=== PATIENT | female | born 1995 | race Caucasian/White ===

== ENCOUNTER 2020-12-21 09:30 | Day surgery (SDC) | payer OTHER, SELFPAY ==
[2020-12-21] VITALS (7 sets, daily range): BP systolic 103–108; BP diastolic 68–75; PULSE 75–85; RESP 16–18; TEMP 36.6–36.7; O2SAT 99–100; BMI 21.7
--- NOTE | ~2020-12-21 | FL_ITS ---
EXAMINATION: XR LUMBAR PUNCTURE UNDER FLUOROSCOPIC GUIDANCE CLINICAL INFORMATION: 25-year-old with persistent right lower extremity numbness and some pain. Patient notes negative outside diagnostic imaging including lumbar spine MR and imaging has been cervical spine. COMPARISON: None. PROCEDURE: Proper informed consent is obtained from the patient after discussion of the procedure, potential risks and complications, and alternatives including declining the procedure today. Patient was given an opportunity for questions. The patient appeared to understand. The patient consented to the procedure and signed the consent form. Lumbar puncture is performed under fluoroscopic guidance using aseptic technique including use of hat, mask, and sterile gown and gloves. Exam performed at interlaminar level of L3-L4. Local anesthesia administered using 5 mL lidocaine 1%. A 22g spinal needle was positioned and prompt recovery of clear cerebral spinal fluid retrieved. A total of 7 mL cerebrospinal fluid was drained, divided among 4 tubes. Laboratories ordered and post procedure note and discharge instructions entered into system. The patient tolerated the procedure well and had no immediate complication. Total fluoroscopy time 0.6 minutes. DAP: 1.161 Gy-cm2 Images: 1 FL/FL guided lumbar puncture LP IMPRESSION: 1. Status post fluoroscopic guided lumbar puncture. 2. Laboratories pending.
[2020-12-21 10:12] LABS: MANUAL DIFF FLAG NO
[2020-12-21 10:13] LABS: Basophils Percent Auto 0.7 % (0-2); Eosinophils Absolute Auto 0.2 X10*3/uL (0.0-0.4); Eosinophils Percent Auto 2.6 % (0-4); Hematocrit 36.7 % (37-47); Hemoglobin 12.4 g/dl (12.0-16.0); Imm Gran Abs Auto 0.02 X10*3/uL (0.00-0.03); Imm Gran Pct Auto 0.3 % (0.0-0.4); Lymphocytes Absolute Auto 2.2 X10*3/uL (1.2-4.9); Lymphocytes Percent Auto 37.5 % (20-40); Mean Corpuscular HGB Conc 33.8 g/dl (31.0-35.0); Mean Corpuscular Volume 94.8 fL (80-98); Mean Platelet Volume 10.4 fL (9.4-12.3); Monocytes Absolute Auto 0.2 X10*3/uL (0.1-1.2); Monocytes Percent Auto 3.6 % (2-11); Neutrophils Absolute Auto 3.2 X10*3/uL (2.0-8.3); Neutrophils Percent Auto 55.3 % (45-73); Platelet Count 245 X10*3/uL (160-400); Red Blood Count 3.87 X10*6/uL (4.20-5.50); Red Cell Distribution Width 11.7 % (11.0-16.0); White Blood Count 5.8 X10*3/uL (4.8-10.8)
[2020-12-21 10:20] LABS: Prothrombin Time 10.8 SEC (9.9-13.0)
[2020-12-21 10:23] LABS: Partial Thromboplastin Time 31.7 SEC (24.1-38.0)
[2020-12-21 10:40] LABS: UPreg QC Valid YES; Urine Pregnancy NEGATIVE (NEGATIVE)
--- NOTE | 2020-12-21 12:11 | HO.RADPN ---
RADIOLOGY Narrative Narrative: Lumbar Puncture: -Labs reviewed. -PCP H&P reviewed -Proper informed consent obtained from patient including risks, complications, alternatives. Gave opportunity for questions. Patient agreed to LP procedure and singed form. -Fluoro guidance, aseptic technique. -L3-4 interlaminar approach. -5 mL lidocaine local anesthesia. -22g spinal needle -Clear CSF - approximately 7mL divided into 4 tubes. -Labs entered including cell count, diff, Gram stain & Culture, glucose, protein, MBP, electrophoresis. -Patient tolerated procedure well and had no complication. -Home instructions reviewed with patient. -Discharge orders sent. -Will dictate procedure report in radiology [employer] to follow. Trevor Chang MD
[2020-12-21 12:51] LABS: CSF Tube # 1
[2020-12-21 12:52] LABS: CSF Appearance Bloody
[2020-12-21 13:30] LABS: Glucose CSF 48 mg/dL; Total Protein CSF 35.1 mg/dL (15-45)
[2020-12-21 14:30] LABS: Appearance CSF CLEAR; CSF Tube # 4; Color CSF COLORLESS
[2020-12-21 14:31] LABS: Lymphocytes CSF 88 %; Neutrophils CSF 12 %; Red Blood Cell CSF 27 MM*3; White Blood Cell CSF 3 MM*3
[2020-12-29 16:26] LABS: Myelin Basic Protein <2.0 mcg/L (2.0-4.0)
[2021-01-05 08:23] LABS: Prealbumin, CSF 3.6; Total Protein, CSF 33
[2021-01-05 08:24] LABS: Albumin, CSF 60.4; Alpha-2-Globulin,CSF 7.5
[2021-01-05 08:25] LABS: Gamma Globulin 4.8
== END 2020-12-21 14:05 | disposition home or self-care (01) ==
PROVIDERS: Radiology Diagnostic Radiology; PCP Internal Medicine; Visit Provider Radiology Diagnostic Radiology
PROC: 009U3ZZ Drainage of Spinal Canal, Percutaneous Approach (ICD-10-PCS; CPT 62270; principal; 2020-12-21 11:00)
DX: G37.9 Demyelinating disease of central nervous system, unspecified (principal); R20.0 Anesthesia of skin; M54.2 Cervicalgia; M54.16 Radiculopathy, lumbar region
CPT/HCPCS: 36415; 62328; 81025; 82945; 83873; 84157; 84166; 85025; 85610; 85730; 87015; 87070; 87205; 89051

== ENCOUNTER 2020-12-22 12:44 | Inpatient (IN) | payer OTHER, SELFPAY ==
--- NOTE | ~2020-12-22 | CT_ITS ---
EXAMINATION: CT HEAD WITHOUT CONTRAST CLINICAL INFORMATION: Headache COMPARISON: None TECHNIQUE: Contiguous axial imaging was performed from the skull base to vertex without intravenous administration of contrast. This CT examination was performed using dose optimization techniques as appropriate, variously including the following: *Automated exposure control *Adjustment of mA and/or kV according to patient size (this includes techniques or standardized protocols for targeted exams where dose is matched to indication/reason for exam; i.e. extremities or head) *Use of iterative reconstruction technique DLP: 759 mGy-cm FINDINGS: There is no evidence of acute intracranial hemorrhage or territorial infarction. No abnormal mass effect or midline shift is seen. Heller to white matter differentiation is well preserved. No extra-axial fluid collections are identified. The ventricles are normal in size. There is no abnormal attenuation within the brain parenchyma. The osseous structures and soft tissues are normal. The visualized paranasal sinuses are well-aerated. Partial opacification of the few of the left mastoid air cells. Right mastoid air cells are well-aerated. Bilateral middle ear cavities are well-aerated. CT/CT head/brain wo con IMPRESSION: No acute intracranial pathology.
--- NOTE | ~2020-12-22 | FL_ITS ---
EXAMINATION: XR FLUOROSCOPY WITH IMAGES CLINICAL INFORMATION: Pain post lumbar puncture COMPARISON: Fluoroscopic guided lumbar puncture 12/21/2020 TECHNIQUE: Fluoroscopy performed by Dr. Kumar Gtz. Fluoroscopy time: 0.3 minutes DAP: 0.675 Gycm2 Images: 3 FINDINGS: Spinal needle is seen positioned at the L3-L4 interlaminar space. The lateral views show contrast in the epidural space. FL/FL guidance in OR IMPRESSION: Fluoroscopy for pain management procedure.
[2020-12-22 12:46] VITALS: BP 116/85; PULSE 130; RESP 16; TEMP 36.6; O2SAT 98; BMI 21.7
[2020-12-22 13:10] VITALS: BP 124/80; PULSE 100; O2SAT 96
--- NOTE | 2020-12-22 13:18 | ED_ITS ---
HPI - General Adult General Chief complaint: General Medical <QUEENIE Palomino - Last Filed: 12/22/20 17:39> Stated complaint: vomiting, had spinal tap t-1 <QUEENIE Palomino - Last Filed: 12/22/20 17:39> Time Seen by Provider: 12/22/20 13:05 <QUEENIE Palomino - Last Filed: 12/22/20 17:39> Source: patient <QUEENIE Palomino - Last Filed: 12/22/20 17:39> Mode of arrival: ambulatory <QUEENIE Palomino - Last Filed: 12/22/20 17:39> Limitations: no limitations <QUEENIE Palomino Last Filed: 12/22/20 17:39> History of Present Illness HPI narrative: 25 y/o female with history of anxiety and mood disorder presenting with severe neck and back pain after LP done here at 11am yesterday. She is currently being worked up by Dr. Truong for a possible delyelinating disease; she has had entire RLE numbness for about 6 weeks. She has had CT scans and MRIs. She reports about 2 hours after the LP done yesterday she started having severe neck pain, middle back pain and headaches, worse whenever she stood. She states the neck and back pain are 10/10. No improvement with Tramadol, Flexeril and Aleve at home. She had projectile vomiting on the way into the ER. Pain is worse with any movement. <QUEENIE Palomino - Last Filed: 12/22/20 17:39> MD complaint: head, neck and back pain <QUEENIE Palomino - Last Filed: 12/22/20 17:39> Onset (ago): day(s) <QUEENIE Palomino - Last Filed: 12/22/20 17:39> Location: head, neck and back <QUEENIE Palomino Last Filed: 12/22/20 17:39> Radiation: back <QUEENIE Palomino Last Filed: 12/22/20 17:39> Severity: severe <QUEENIE Palomino Last Filed: 12/22/20 17:39> Severity scale (1-10): >10 <QUEENIE Palomino Last Filed: 12/22/20 17:39> Quality: stabbing, sharp and constant <QUEENIE Palomino Last Filed: 12/22/20 17:39> Pain Consistency: constant <QUEENIE Palomino Last Filed: 12/22/20 17:39> Relieving factors: immobilization and rest <QUEENIE Palomino Last Filed: 12/22/20 17:39> Exacerbating factors: movement <QUEENIE Palomino Last Filed: 12/22/20 17:39> Associated symptoms: headaches and nausea/vomiting <QUEENIE Palomino Last Filed: 12/22/20 17:39> Treatments prior to arrival: other (tramadol) <QUEENIE Palomino Last Filed: 12/22/20 17:39> Related Data Home medications: Home Medications Medication Instructions Recorded Confirmed clonazepam 0.5 mg tablet 0.25 - 0.5 mg PO BEDTIME 12/22/20 12/22/20 cyclobenzaprine 10 mg tablet 1 tab PO BEDTIME 12/22/20 12/22/20 lamotrigine 150 mg tablet 1 tab PO BEDTIME 12/22/20 12/22/20 melatonin 3 mg tablet 3 mg PO BEDTIME 12/22/20 12/22/20 norgestimate 0.25 mg-ethinyl 1 tab PO BEDTIME 12/22/20 12/22/20 estradiol 35 mcg tablet tramadol 50 mg tablet 1 tab PO DAILY PRN 12/22/20 12/22/20 trazodone 100 mg tablet 1 tab PO BEDTIME 12/22/20 12/22/20 <QUEENIE Palomino Last Filed: 12/22/20 17:39> Allergies/adverse reactions: Allergies Allergy/AdvReac Type Severity Reaction Status Date / Time From Benadryl Allergy Unknown N/A Uncoded 01/08/20 17:58 <QUEENIE Palomino Last Filed: 12/22/20 17:39> Review of Systems Constitutional: Constitutional: Denies chills, Denies fever(s) and Reports headache(s) <QUEENIE Palomino Last Filed: 12/22/20 17:39> Eyes: Eyes: Reports no additional eye complaints <QUEENIE Palomino Last Filed: 12/22/20 17:39> ENT: Denies dizziness, Denies otalgia, Denies facial pain, Reports headache(s), Denies neck mass, Reports neck pain, Denies throat swelling and Denies tongue swelling <QUEENIE Palmoino Last Filed: 12/22/20 17:39> Cardiovascular: Cardiovascular: Reports chest pain and Denies dyspnea <QUEENIE Judge Last Filed: 12/22/20 17:39> Respiratory: Respiratory: Denies cough and Denies dyspnea <QUEENIE Ceron Last Filed: 12/22/20 17:39> Gastrointestinal: Gastrointestinal: Denies abdominal pain, Denies coffee ground emesis, Denies diarrhea, Reports nausea and Reports vomiting <QUEENIE Palomino Last Filed: 12/22/20 17:39> Musculoskeletal: Musculoskeletal: Reports back pain, Denies arthralgias, Denies limited range of motion, Reports neck pain, Reports numbness and Denies tingling <QUEENIE Palomino Last Filed: 12/22/20 17:39> Integumentary/Breasts: Skin/Breast: Denies rash <QUEENIE Palomino Last Filed: 12/22/20 17:39> Neurologic: Denies Abnormal speech present, Denies confusion, Denies d izziness, Reports headache(s), Denies focal weakness, Reports numbness, Denies tingling and Denies paresthesias <QUEENIE Palomino Last Filed: 12/22/20 17:39> Psychiatric: Psychiatric: Reports anxiety and Denies confusion <QUEENIE Palomino Last Filed: 12/22/20 17:39> Hematologic/Lymphatic: Hematologic/Lymphatic: Denies easy bleeding and Denies easy bruising <QUEENIE Palomino Last Filed: 12/22/20 17:39> Allergic/Immunologic: Allergic/Immunologic: Denies throat swelling and Denies tongue swelling <QUEENIE Palomino Last Filed: 12/22/20 17:39> PMFSH Past Medical History Attestation statement: The following information was validated with the patient. <QUEENIE Palomino - Last Filed: 12/22/20 17:39> Medical History: Medical History Toxic shock syndrome Vaginal tumor <QUEENIE Palomino - Last Filed: 12/22/20 17:39> Surgical History: Surgical History (Updated 12/22/20 @ 12:48 by Louise Chnag RN) History of appendectomy <QUEENIE Palomino - Last Filed: 12/22/20 17:39> Social History Social History: Social History Alcohol intake: current Alcohol intake frequency: holidays/special occasions only Patient Tobacco Use Status: Never used Tobacco Use of substances other than those prescribed or required for medical reasons: No Advance Directives: No Advance Directives Information Provided: No <QUEENIE Palomino - Last Filed: 12/22/20 17:39> Physical Exam 2 Vital Signs: Vital Signs: Last Vital Signs Temp 98.1 F 12/22/20 16:11 Pulse 97 12/22/20 16:11 Resp 20 12/22/20 21:50 BP 103/62 12/22/20 16:11 Pulse Ox 100 12/22/20 21:50 Body Mass Index 21.7 <QUEENIE Palomino - Last Filed: 12/22/20 17:39> Vital Signs: Last Vital Signs Temp 98.1 F 12/22/20 16:11 Pulse 97 12/22/20 16:11 Resp 20 12/22/20 21:50 BP 103/62 12/22/20 16:11 Pulse Ox 100 12/22/20 21:50 Body Mass Index 21.7 <Teresa Ivey NP - Last Filed: 12/22/20 23:00> Appearance: Alert. Oriented X3. Laying flat on the stretcher, appears uncomfortable. Eyes: Pupils equal, round and reactive to light. ENT: Pharynx normal. Neck: Normal inspection. Neck supple. Soft tissues of the posterior neck are tender with spasm. CVS: Normal heart rate and rhythm. Pulses normal. Respiratory: No respiratory distress. Breath sounds normal. Abdomen: Soft and nontender. +BS x4 Skin: Skin warm and dry. Normal skin color. Normal skin turgor. No rashes. Extremities: No lower extremity edema. Neuro: Oriented X 3. Speaking in complete sentences, no gross motor or sensory deficits. Unable to perform complete neuro assessment as patient needs to continue to lay flat. <QUEENIE Palomino Last Filed: 12/22/20 17:39> Const: General: No confusion <QUEENIE Palomino Last Filed: 12/22/20 17:39> Orientation/consciousness: No confusion <QUEENIE Palomino Last Filed: 12/22/20 17:39> Neuro: General: No confusion <QUEENIE Palomino Last Filed: 12/22/20 17:39> Speech: No Abnormal speech present <QUEENIE Palomino Last Filed: 12/22/20 17:39> Course Course Course Narrative: 25 y/o female presenting with severe neck, back and occipital head pain s/p LP done here yeater morning. Will give IVF, toradol and dilaudid and reassess. Labs ordered. Laying flat in the stretcher. Appears uncomfortable. <QUEENIE Palomino Last Filed: 12/22/20 17:39> Reevaluation(s) Reevaluation #1: Minimal relief with 0.5 mg IV dilaudid, will repeat dose and add 1g tylenol and more fluids. <QUEENIE Palomino Last Filed: 12/22/20 17:39> Reevaluation #2: Patient had some brief relief after 1 mg IV dilaudid but when she sat back up the pain significantly worsened. She is now describing upper back and lateral neck pain, seems to be more muscular in nature. will give trial of Valium. TT anesthesia for blood patch evaluation. <QUEENIE Palomino Last Filed: 12/22/20 17:39> Reevaluation #3: Physician observation started at 5:30pm. Patient placed in physician observation because patient is awaiting anesthesia evaluation for the possible need of a blood patch. Also giving the medications more time to work. At the time observation was started patient's vital signs were stable. Patient is alert and oriented. Neuro exam is non-focal. CV: RRR and lungs are clear. Will continue to monitor. <QUEENIE Palomino Last Filed: 12/22/20 17:39> Time: 21:00 <Teresa Ivey NP - Last Filed: 12/22/20 23:00> Additional Reevaluation(s): I received sign out from Sallie JEROME pending anesthesia involvement for blood patch. Patient is currently being followed by neurology for RLE paresthesias and had a LP yesterday under fluoroscopy. After the LP she developed VALDEZ, neck pain and back pain. Patient received multiple medications by the previous provider with continued symptoms and therefore an anesthesia consult was placed for possible blood patch. The patient was seen by Dr Putnam and after discussion with the patient it was decided to hold on the blood patch. He did administer a sphenopalatine ganglion block. I re-evaluated the patient at 0. She tells me she has mild VALDEZ but severe neck and back pain which has been persistent. She has some relief with the IV dilaudid. She tells me she cannot get up or sit up by herself without help. I spoke to my attending Dr Fan who saw the patient. Recommended giving 10mg IV decadron and discussing the case with the patient's neurologist (Hugo). Call out to credit control clerk neurologist to discuss. Patient may need admission for pain control. [phone] to Dr Arias who recommended IVcaffeine x 2 doses. Admit for pain control. Re-evaluate for need for blood patch in the AM. Call out to medicine to discuss for admission. [phone]-Spoke to Dr Stahl who accepted admission. <Teresa Ivey NP - Last Filed: 12/22/20 23:00> Medical Decision Making Lab Data Result diagrams: : 12/22/20 13:28 12/22/20 13:28 <QUEENIE Palomino - Last Filed: 12/22/20 17:39> Labs: Lab Results 12/22/20 12/22/20 Range/Units 13:28 13:28 WBC 10.1 (4.8-10.8) X10*3/uL RBC 3.98 L (4.20-5.50) X10*6/uL Hgb 12.8 (12.0-16.0) g/dl Hct 37.3 (37-47) % MCV 93.7 (80-98) fL MCH 32.2 (27.0-33.0) pg MCHC 34.3 (31.0-35.0) g/dl RDW 11.4 (11.0-16.0) % Plt Count 248 (160-400) X10*3/uL MPV 10.3 (9.4-12.3) fL Immature Gran % (Auto) 0.4 (0.0-0.4) % Neut % (Auto) 75.1 H (45-73) % Lymph % (Auto) 20.3 (20-40) % [place] % (Auto) 3.3 (2-11) % Eos % (Auto) 0.6 (0-4) % Baso % (Auto) 0.3 (0-2) % Lymph # (Auto) 2.0 (1.2-4.9) X10*3/uL [place] # (Auto) 0.3 (0.1-1.2) X10*3/uL Eos # (Auto) 0.1 (0.0-0.4) X10*3/uL Baso # (Auto) 0.0 (0.0-0.2) X10*3/uL Abs Immat Gran (auto) 0.04 H (0.00-0.03) X10*3/uL Absolute Neuts (auto) 7.6 (2.0-8.3) X10*3/uL Absolute Nucleated RBC 0.000 (0.0-0.012) X10*3/uL Nucleated RBC % (auto) 0.0 (0.0-0.2) /100WBC Sodium 137 (135-145) mmol/L Potassium 3.8 (3.3-5.1) mmol/L Chloride 103 (96-108) mmol/L Carbon Dioxide 26 (22-29) mmol/L Anion Gap 12 (12-20) BUN 13 (9-16) mg/dL Creatinine 0.80 (0.5-1.4) mg/dL Estim Creat Clear Calc 98.9 Estimated GFR > 60 Random Glucose 89 (60-115) mg/dL Calcium 10.0 (8.4-10.2) mg/dL <QUEENIE Palomino - Last Filed: 09/01/21 17:39> Lab Results 12/22/20 12/22/20 Range/Units 13:28 13:28 WBC 10.1 (4.8-10.8) X10*3/uL RBC 3.98 L (4.20-5.50) X10*6/uL Hgb 12.8 (12.0-16.0) g/dl Hct 37.3 (37-47) % MCV 93.7 (80-98) fL MCH 32.2 (27.0-33.0) pg MCHC 34.3 (31.0-35.0) g/dl RDW 11.4 (11.0-16.0) % Plt Count 248 (160-400) X10*3/uL MPV 10.3 (9.4-12.3) fL Immature Gran % (Auto) 0.4 (0.0-0.4) % Neut % (Auto) 75.1 H (45-73) % Lymph % (Auto) 20.3 (20-40) % [place] % (Auto) 3.3 (2-11) % Eos % (Auto) 0.6 (0-4) % Baso % (Auto) 0.3 (0-2) % Lymph # (Auto) 2.0 (1.2-4.9) X10*3/uL [place] # (Auto) 0.3 (0.1-1.2) X10*3/uL Eos # (Auto) 0.1 (0.0-0.4) X10*3/uL Baso # (Auto) 0.0 (0.0-0.2) X10*3/uL Abs Immat Gran (auto) 0.04 H (0.00-0.03) X10*3/uL Absolute Neuts (auto) 7.6 (2.0-8.3) X10*3/uL Absolute Nucleated RBC 0.000 (0.0-0.012) X10*3/uL Nucleated RBC % (auto) 0.0 (0.0-0.2) /100WBC Sodium 137 (135-145) mmol/L Potassium 3.8 (3.3-5.1) mmol/L Chloride 103 (96-108) mmol/L Carbon Dioxide 26 (22-29) mmol/L Anion Gap 12 (12-20) BUN 13 (9-16) mg/dL Creatinine 0.80 (0.5-1.4) mg/dL Estim Creat Clear Calc 98.9 Estimated GFR > 60 Random Glucose 89 (60-115) mg/dL Calcium 10.0 (8.4-10.2) mg/dL <Teresa Ivey NP - Last Filed: 12/22/20 23:00> Discharge Plan Discharge Clinical Impression: Headache following lumbar puncture <QUEENIE Palomino - Last Filed: 12/22/20 17:39> Patient Disposition: Admitted As Inpatient <QUEENIE Palomino - Last Filed: 12/22/20 17:39>
[2020-12-22 13:35] LABS: MANUAL DIFF FLAG NO
[2020-12-22 13:36] LABS: Basophils Percent Auto 0.3 % (0-2); Eosinophils Absolute Auto 0.1 X10*3/uL (0.0-0.4); Eosinophils Percent Auto 0.6 % (0-4); Hematocrit 37.3 % (37-47); Hemoglobin 12.8 g/dl (12.0-16.0); Imm Gran Abs Auto 0.04 X10*3/uL (0.00-0.03); Imm Gran Pct Auto 0.4 % (0.0-0.4); Lymphocytes Percent Auto 20.3 % (20-40); Mean Corpuscular HGB Conc 34.3 g/dl (31.0-35.0); Mean Corpuscular Hemoglobin 32.2 pg (27.0-33.0); Mean Corpuscular Volume 93.7 fL (80-98); Mean Platelet Volume 10.3 fL (9.4-12.3); Monocytes Absolute Auto 0.3 X10*3/uL (0.1-1.2); Monocytes Percent Auto 3.3 % (2-11); Neutrophils Absolute Auto 7.6 X10*3/uL (2.0-8.3); Neutrophils Percent Auto 75.1 % (45-73); Platelet Count 248 X10*3/uL (160-400); Red Blood Count 3.98 X10*6/uL (4.20-5.50); Red Cell Distribution Width 11.4 % (11.0-16.0); White Blood Count 10.1 X10*3/uL (4.8-10.8)
[2020-12-22] MEDS: 0.9 % Sodium Chloride 1,000 ML 999 ML IVCONT ×2 (13:39→15:45)
[2020-12-22] MEDS: Ketorolac Tromethamine 15 MG/ML VIAL IVPUSH (13:39)
[2020-12-22] MEDS: ondansetron HCL 4 MG/2 ML VIAL IVPUSH (13:39)
[2020-12-22 13:51] LABS: Anion Gap 12 (12-20); Blood Urea Nitrogen 13 mg/dL (9-16); Carbon Dioxide 26 mmol/L (22-29); Chloride 103 mmol/L (96-108); Creatinine Clr Calc Pharmacy 98.9; Estimated Glomerular Filt Rate > 60; Glucose Random 89 mg/dL (60-115); Potassium 3.8 mmol/L (3.3-5.1); Sodium 137 mmol/L (135-145)
[2020-12-22] MEDS: HYDROmorphone HCl 0.5 MG/0.5 ML SYRINGE IVPUSH ×3 (14:04→23:29)
[2020-12-22 14:13] VITALS: PULSE 95; TEMP 36.6; O2SAT 100
[2020-12-22 16:11] VITALS: BP 103/62; PULSE 97; RESP 18; TEMP 36.7; O2SAT 99
[2020-12-22] MEDS: Acetaminophen 325 MG TABLET 975 MG PO (16:44)
[2020-12-22] MEDS: Lidocaine 4 % Patch ADH..PATCH 1 PATCH TRANSDERMA ×2 (17:38)
[2020-12-22] MEDS: diazePAM 5 MG TABLET PO (17:38)
--- NOTE | 2020-12-22 20:45 | PC.NURSE ---
Anesthesia at bedside
--- NOTE | 2020-12-22 20:59 | P.CONAN1_ITS ---
History of Present Illness Consult details Consult date: 12/22/20 Narrative: Post LP headache Review of Systems Review of Systems: Positional headache, mild nech stiffness, upper thoracic back pain radiating to shoulders and down to the spine.denies any leg weakness or paresthesias. [facility] Past Medical History Medical History Toxic shock syndrome Vaginal tumor Surgical History Surgical History (Updated 12/22/20 @ 12:48 by Louise Chang RN) History of appendectomy Social History Social History Alcohol intake: current Alcohol intake frequency: holidays/special occasions only Patient Tobacco Use Status: Never used Tobacco Use of substances other than those prescribed or required for medical reasons: No Advance Directives: No Advance Directives Information Provided: No Narrative Narrative: Pt had LP yesterday as apart of a diagnostic work-up for numbness in her right leg over a period of a few weeks. A few hours later she developed predominantly upper back pain with some neck pain and headache, however those to the least degree. headache and neck pain seem to be positional, but the back pain not. Meds Allergies Allergy/AdvReac Type Severity Reaction Status Date / Time From Benadryl Allergy Unknown N/A Uncoded 01/08/20 17:58 Physical Exam Vital Signs: Vital Signs: Last Vital Signs Temp 98.1 F 12/22/20 16:11 Pulse 97 12/22/20 16:11 Resp 18 12/22/20 16:11 BP 103/62 12/22/20 16:11 Pulse Ox 99 12/22/20 16:11 Body Mass Index 21.7 Const: Orientation/consciousness: oriented to person, oriented to place and oriented to time Neck: Neck: Yes no meningeal signs Neuro: General: oriented to person, oriented to place, oriented to time, tone normal, moves all extremities, no meningeal signs, no focal motor deficits, CN's II-XI intact bilaterally and Unable to assess gait Cognition (Neuro): normal cognition Gait exam (Neuro): Unable to assess gait Results Labs Result diagrams: 12/22/20 13:28 12/22/20 13:28 Labs: Abnormal lab results 12/22/20 Range/Units 13:28 RBC 3.98 L (4.20-5.50) X10*6/uL Neut % (Auto) 75.1 H (45-73) % Abs Immat Gran (auto) 0.04 H (0.00-0.03) X10*3/uL Short CBC 12/22/20 Range/Units 13:28 WBC 10.1 (4.8-10.8) X10*3/uL Hgb 12.8 (12.0-16.0) g/dl Hct 37.3 (37-47) % Plt Count 248 (160-400) X10*3/uL BMP 12/22/20 13:28 Sodium 137 Potassium 3.8 Chloride 103 Carbon Dioxide 26 BUN 13 Creatinine 0.80 Calcium 10.0 All other labs normal. Assessment and Plan (1) Headache following lumbar puncture: Status: Acute Patient was given detailed explanation reg. blood patch procedure and its benefits and risks. She decided to continue till tomorrow with the conservative treatment and re-evaluate her choices tomorrow based on the symptoms intensity. She accepted administration of Sphenopalatine ganglion block at this time. Two Q-tips soaked in Lidocaine 4% were applkied through both nostrils to the posterior pharengeal wall for 5 min. There were no bleeding or any discomfort during the application. Patient reported no worsening or improvement in her symptoms upon the procedure conclusion. Procedures Date of Service Date of Service: 12/22/20 Abscess I/D Consent for Procedure: Elective - informed consent obtained
--- NOTE | 2020-12-22 21:34 | PC.NURSE ---
Pt remains in 9/10 pain laying flat, with movement increases exponentially. Requesting food at this time and something to drink. Mom at bedside. Dr Motley assessed the pt and determined to keep her in the hospital .
[2020-12-22 21:50] VITALS: RESP 20; O2SAT 100
--- NOTE | 2020-12-22 22:14 | PHA.MEDREC ---
Pharmacy Consult ? Medication Reconciliation Pharmacy has completed the medication reconciliation. Spoke with patient in ED
[2020-12-22] MEDS: dexAMETHasone sod phosphate 10 MG/ML VIAL IVPUSH (22:47)
[2020-12-22] MEDS: Caffeine/Sodium Benzoate 500 MG in 0.9 % Sodium Chloride 1,000 ML 999 MG IV (22:57)
--- NOTE | 2020-12-22 23:01 | PC.NURSE ---
Caffeine drip/sodium benzoate not scanned in properly into MAR - pharmacy aware, started at [id number]
--- NOTE | 2020-12-22 23:13 | PC.NURSE ---
pt in 10/10 pain, some nausea and retching but no vomiting. started on the caffeine drip.
--- NOTE | 2020-12-22 23:19 | P.HPHOSP_ITS ---
History of Present Illness Date of Service: 12/22/20 Chief Complaint: Headaches 25-year-old female with a past medical history of anxiety, mood disorder; reason complains of left lower extremity paresthesias-being worked up for demyelinating disorder by Dr. Charles- neurology as outpatient; has had CT and MRI as outpatient; had LP done on 12/21/2020 under fluoroscopy; post LP she started to develop headache, neck pain, back pain; limiting her ambulation; presented back to the ER for further evaluation. Patient denies any chest pain palpitations lightheadedness or dizziness. Denies any numbness tingling except for right lower extremity paresthesias. Reports that she is not able to get up because of the headache and neck pain and does not feel comfortable walking. Denies any fever chills cough. Denies any GI or symptoms. Review of all other systems is negative except mentioned above ER course: Per ER team new patient had continued to have headache neck pain and back pain even after multiple doses of IV pain medications; discussed with Anesthesia who has seen the patient and evaluated the patient after discussion blood patch was deferred. Anesthesia spoke to the Neurology who recommended admission to the hospital for pain control and to be re-evaluated in the morning for blood patch consideration. [facility] Medical History Toxic shock syndrome Vaginal tumor Surgical History (Updated 12/22/20 @ 12:48 by Louise Chang RN) History of appendectomy Social History Alcohol intake: current Alcohol intake frequency: holidays/special occasions only Patient Tobacco Use Status: Never used Tobacco Use of substances other than those prescribed or required for medical reasons: No Advance Directives: No Advance Directives Information Provided: No Meds Allergies Allergy/AdvReac Type Severity Reaction Status Date / Time From Benadryl Allergy Unknown N/A Uncoded 01/08/20 17:58 Active Medications: Current Medications Generic Name Dose Route Start Last Admin Trade Name Freq PRN Reason Stop Dose Admin Acetaminophen 650 mg 12/22/20 22:58 Acetaminophen 325 Mg Tablet PO Q6H PRN Pain, Mild (Pain Scale 1-3) Hydromorphone HCl 0.5 mg 12/22/20 22:58 Hydromorphone Hcl 0.5 Mg/0.5 Ml Syringe IVPUSH Q4H PRN Pain, Severe (Pain Scale 7-10) Protocol Sodium Chloride 1,000 mls @ 500 mls/hr 12/22/20 23:00 Ns IVCONT 12/23/20 00:59 .Q2H NICOLE Sodium Chloride 1,000 mls @ 100 mls/hr 12/22/20 23:00 Ns IVCONT .Q10H NICOLE Magnesium Hydroxide 30 ml 12/22/20 22:58 Milk Of Magnesia 30 Ml Oral.Susp PO DAILY PRN Constipation Melatonin 6 mg 12/22/20 22:58 Melatonin 3 Mg Tablet PO BEDTIME PRN Insomnia Pharmacy Consult 1 each 12/22/20 21:55 Consult Rx Perform Med Rec MISCELLANE ONCE PRN Consult order Senna 17.2 mg 12/22/20 22:58 Sennosides 8.6 Mg Tablet PO BEDTIME PRN Constipation Sodium Chloride 3 ml 12/23/20 00:00 0.9 % Sodium Chloride Flush 3 Ml Syringe IVFLUSH QSHIFT [facility] Home Medications Medication Instructions Recorded Confirmed Last Taken Type clonazepam 0.5 mg tablet 0.25 - 0.5 mg PO BEDTIME 12/22/20 12/22/20 12/21/20 History cyclobenzaprine 10 mg tablet 1 tab PO BEDTIME 12/22/20 12/22/20 12/21/20 History lamotrigine 150 mg tablet 1 tab PO BEDTIME 12/22/20 12/22/20 12/21/20 History melatonin 3 mg tablet 3 mg PO BEDTIME 12/22/20 12/22/20 12/21/20 History norgestimate 0.25 mg-ethinyl 1 tab PO BEDTIME 12/22/20 12/22/20 12/21/20 History estradiol 35 mcg tablet tramadol 50 mg tablet 1 tab PO DAILY PRN 12/22/20 12/22/20 Unknown History trazodone 100 mg tablet 1 tab PO BEDTIME 12/22/20 12/22/20 12/21/20 History Physical Exam Vital Signs and Narrative: Vital Signs: Last Vital Signs Temp 98.1 F 12/22/20 16:11 Pulse 97 12/22/20 16:11 Resp 20 12/22/20 21:50 BP 103/62 12/22/20 16:11 Pulse Ox 100 12/22/20 21:50 Body Mass Index 21.7 Gen: Appears be in no acute distress HEENT: NCAT, Moist mucosa. Pulmonary: Vesicular breath sounds, fair air entry CVS: Normal S1-S2 Abdomen: BS+, Soft, Nontender Extremities: Warm well perfused Neuro: Alert and awake. Results Labs CBC and Chem 7: 12/22/20 13:28 12/22/20 13:28 Labs: Laboratory Results - last 24 hr 12/22/20 12/22/20 13:28 13:28 MCV 93.7 MCH 32.2 MCHC 34.3 RDW 11.4 Plt Count 248 MPV 10.3 Immature Gran % (Auto) 0.4 Neut % (Auto) 75.1 H Lymph % (Auto) 20.3 [place] % (Auto) 3.3 Eos % (Auto) 0.6 Baso % (Auto) 0.3 Lymph # (Auto) 2.0 [place] # (Auto) 0.3 Eos # (Auto) 0.1 Baso # (Auto) 0.0 Abs Immat Gran (auto) 0.04 H Absolute Neuts (auto) 7.6 Absolute Nucleated RBC 0.000 Nucleated RBC % (auto) 0.0 Anion Gap 12 Estim Creat Clear Calc 98.9 Estimated GFR > 60 Random Glucose 89 Calcium 10.0 Assessment and Plan (1) Headache following lumbar puncture: Status: Acute 25-year-old female with a past medical history of anxiety, mood disorder presented to the hospital with a chief complaint of headache/neck pain/back pain post lumbar puncture. Admitted to the hospital for fluid control. Post lumbar puncture headache/neck pain: Neurology was notified. Patient was evaluated by Anesthesia-blood patch was deferred. IV Dilaudid for pain control. Patient was given caffeine as per Neurology recommendations in the ER. Fall precautions IV fluids Patient does Lidoderm patch in place Anxiety/mood disorder: Continue home medications. DVT prophylaxis: SCD boots Code status: Full code Quality Stroke Does the patient have a stroke diagnosis?: No VTE Prior VTE?: No VTE Risk Level:: Medical - moderate - high VTE Device Contraindication: N/A - Device Ordered VTE Drug Contraindication: Treatment Not Indicated
--- NOTE | 2020-12-22 23:39 | PC.NURSE ---
pt a&O. pt is teary and having anxiety due to increase pain. Mom at the bedside. Was able to have pt slow down breathing and try to relax after being medicated for pain. plan is for pt to be admitted.
[2020-12-22 23:42] LABS: COVID-19 Test Negative (Negative); IDNOW Serial# 9DD0AD1C
[2020-12-23] VITALS: BP 107/73; PULSE 88; RESP 20; TEMP 36.4; O2SAT 98
--- NOTE | 2020-12-23 00:42 | PC.NURSE ---
pt has had some pain relief 10/30 after being medicated. report given pt be transferred to unit at this time.
[2020-12-23] MEDS: 0.9 % Sodium Chloride 1,000 ML 500 ML IVCONT (01:33)
[2020-12-23] MEDS: clonazePAM 0.5 MG TABLET PO (02:38)
[2020-12-23] MEDS: lamoTRIgine 100 MG TABLET 150 MG PO ×2 (02:39→20:31)
[2020-12-23] MEDS: traZODone HCL 100 MG TABLET PO ×2 (02:40→20:31)
[2020-12-23] MEDS: 0.9 % Sodium Chloride 1,000 ML 100 ML IVCONT ×3 (02:40→21:20)
--- NOTE | 2020-12-23 03:00 | PC.NURSE ---
some of pt home medications ordered on admission. Requested to take only 25mg trazodone instead of 100mg dose she normally takes. she also refused sequentials, educated about importance and would revisit situation once calmed down after transfer.
[2020-12-23] MEDS: HYDROmorphone HCl 0.5 MG/0.5 ML SYRINGE IVPUSH ×4 (03:18→16:01)
[2020-12-23] MEDS: ondansetron HCL 4 MG/2 ML VIAL IVPUSH (03:38)
[2020-12-23 06:18] LABS: MANUAL DIFF FLAG NO
[2020-12-23 06:24] LABS: Basophils Percent Auto 0.2 % (0-2); Hematocrit 35.4 % (37-47); Hemoglobin 12.1 g/dl (12.0-16.0); Imm Gran Abs Auto 0.02 X10*3/uL (0.00-0.03); Imm Gran Pct Auto 0.4 % (0.0-0.4); Lymphocytes Absolute Auto 0.7 X10*3/uL (1.2-4.9); Mean Corpuscular HGB Conc 34.2 g/dl (31.0-35.0); Mean Corpuscular Hemoglobin 31.3 pg (27.0-33.0); Mean Corpuscular Volume 91.7 fL (80-98); Mean Platelet Volume 10.3 fL (9.4-12.3); Monocytes Absolute Auto 0.1 X10*3/uL (0.1-1.2); Monocytes Percent Auto 1.1 % (2-11); Neutrophils Absolute Auto 3.7 X10*3/uL (2.0-8.3); Neutrophils Percent Auto 83.3 % (45-73); Platelet Count 276 X10*3/uL (160-400); Red Blood Count 3.86 X10*6/uL (4.20-5.50); Red Cell Distribution Width 11.1 % (11.0-16.0); White Blood Count 4.5 X10*3/uL (4.8-10.8)
[2020-12-23] MEDS: traMADoL HCL 50 MG TABLET PO (06:27)
[2020-12-23 06:46] LABS: Anion Gap 10 (12-20); Blood Urea Nitrogen 9 mg/dL (9-16); Calcium 8.5 mg/dL (8.4-10.2); Carbon Dioxide 21 mmol/L (22-29); Chloride 110 mmol/L (96-108); Creatinine Clr Calc Pharmacy 118.1; Estimated Glomerular Filt Rate > 60; Glucose Random 153 mg/dL (60-115); Potassium 4.3 mmol/L (3.3-5.1); Sodium 137 mmol/L (135-145)
[2020-12-23 07:28] VITALS: BP 116/77; PULSE 97; RESP 18; TEMP 36.7; O2SAT 96
--- NOTE | 2020-12-23 09:14 | MHC.CM.PN ---
CM met with Patient and her Mother at bedside. 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 Patient's goal for dc is to return home and she may benefit from a PT eval. CM has initiated and will follow for dc planning. PCP is Dr. Brandon Chowdary.
--- NOTE | 2020-12-23 10:21 | P.PNIM_ITS ---
Subjective Subjective Date of Service: 12/23/20 Interval History: f/u on headache, persitent VALDEZ and neck pain, worse when she sit up Review of Systems Headache Neck pain no fever Physical Exam Vital Signs: Vital Signs: Last Vital Signs Temp 98.0 F 12/23/20 07:28 Pulse 97 12/23/20 07:28 Resp 18 12/23/20 07:28 BP 116/77 12/23/20 07:28 Pulse Ox 96 12/23/20 07:28 Body Mass Index 21.7 General: AO X 3, feels uncomfortable other than when lying down Resp: CTA bilateral CVS: S1,S2,RRR GI: +BS, NT, no distention Skin: No rash Neuro: motor grossly intact Psych: appropriate affect Objective Data Active Medications Acetaminophen (Acetaminophen 325 Mg Tablet) 650 mg PO Q6H PRN PRN Reason: Pain, Mild (Pain Scale 1-3) Clonazepam (Clonazepam 0.5 Mg Tablet) 0.25 - 0.5 mg PO BEDTIME [facility] Last Admin: 12/23/20 02:38 Dose: 0.25 mg Documented by: VANI Cyclobenzaprine HCl (Cyclobenzaprine Hcl 10 Mg Tablet) 10 mg PO BEDTIME NICOLE Ethinyl Estradiol/Norgestimate (Norgestimat/Eth Est 0.25/0.035 Tablet) 1 tab PO BEDTIME NICOLE Hydromorphone HCl (Hydromorphone Hcl 0.5 Mg/0.5 Ml Syringe) 0.5 mg IVPUSH Q4H PRN; Protocol PRN Reason: Pain, Severe (Pain Scale 7-10) Last Admin: 12/23/20 07:18 Dose: 0.5 mg Documented by: VANI Sodium Chloride (Ns) 1,000 mls @ 100 mls/hr IVCONT .Q10H [facility] Last Infusion: 12/23/20 03:56 Dose: 100 mls/hr Documented by: VANI Lamotrigine (Lamotrigine 100 Mg Tablet) 150 mg PO BEDTIME NICOLE Last Admin: 12/23/20 02:39 Dose: 150 mg Documented by: VANI Comments: okayed - home dose of medication Magnesium Hydroxide (Milk Of Magnesia 30 Ml Oral.Susp) 30 ml PO DAILY PRN PRN Reason: Constipation Melatonin (Melatonin 3 Mg Tablet) 6 mg PO BEDTIME PRN PRN Reason: Insomnia Pharmacy Consult (Consult Rx Perform Med Rec) 1 each MISCELLANE ONCE PRN PRN Reason: Consult order Senna (Sennosides 8.6 Mg Tablet) 17.2 mg PO BEDTIME PRN PRN Reason: Constipation Sodium Chloride (0.9 % Sodium Chloride Flush 3 Ml Syringe) 3 ml IVFLUSH QSHIFT [facility] Last Admin: 12/23/20 10:07 Dose: Not Given Documented by: SNEHA Non-Admin Reason: IV Running Tramadol HCl (Tramadol Hcl 50 Mg Tablet) 50 mg PO DAILY PRN PRN Reason: Pain (Scale Score 4-6) Last Admin: 12/23/20 06:27 Dose: 50 mg Documented by: VANI Trazodone HCl (Trazodone Hcl 100 Mg Tablet) 100 mg PO BEDTIME [facility] Last Admin: 12/23/20 02:40 Dose: 25 mg Documented by: VANI Comments: pt only wanted 25mg of trazodone due to it being ordered late Labs CBC & Chem 7: 12/23/20 06:11 12/23/20 06:11 Labs: Laboratory Results - last 24 hr 12/22/20 12/22/20 12/22/20 13:28 13:28 23:20 MCV 93.7 MCH 32.2 MCHC 34.3 RDW 11.4 Plt Count 248 MPV 10.3 Immature Gran % (Auto) 0.4 Neut % (Auto) 75.1 H Lymph % (Auto) 20.3 [place] % (Auto) 3.3 Eos % (Auto) 0.6 Baso % (Auto) 0.3 Lymph # (Auto) 2.0 [place] # (Auto) 0.3 Eos # (Auto) 0.1 Baso # (Auto) 0.0 Abs Immat Gran (auto) 0.04 H Absolute Neuts (auto) 7.6 Absolute Nucleated RBC 0.000 Nucleated RBC % (auto) 0.0 Anion Gap 12 Estim Creat Clear Calc 98.9 Estimated GFR > 60 Random Glucose 89 Calcium 10.0 COVID-19 (LAURA) Negative COVID-19 Clin Com See Note 12/23/20 12/23/20 06:11 06:11 MCV 91.7 MCH 31.3 MCHC 34.2 RDW 11.1 Plt Count 276 MPV 10.3 Immature Gran % (Auto) 0.4 Neut % (Auto) 83.3 H Lymph % (Auto) 15.0 L [place] % (Auto) 1.1 L Eos % (Auto) 0.0 Baso % (Auto) 0.2 Lymph # (Auto) 0.7 L [place] # (Auto) 0.1 Eos # (Auto) 0.0 Baso # (Auto) 0.0 Abs Immat Gran (auto) 0.02 Absolute Neuts (auto) 3.7 Absolute Nucleated RBC 0.000 Nucleated RBC % (auto) 0.0 Anion Gap 10 L Estim Creat Clear Calc 118.1 Estimated GFR > 60 Random Glucose 153 H D Calcium 8.5 D COVID-19 ([facility]URA) COVID-19 Clin Com Assessment and Plan (1) Headache following lumbar puncture: Status: Acute Assessment and Plan: ?25-year-old female with a past medical history of anxiety, mood disorder presented to the hospital with a chief complaint of headache/neck pain/back pain post lumbar puncture Headache/Neck pain following LP--Pain control with Dilaudid Anesthesia consult for blood patch per Neuro recommendation Anxiety/mood disorder:? Continue home medications in additiona to Valium d/t excess anxiety in light of above Quality Stroke Does the patient have a stroke diagnosis?: No VTE Prior VTE?: No VTE Risk Level:: Medical - moderate - high VTE Device Contraindication: N/A - Device Ordered VTE Drug Contraindication: Treatment Not Indicated
[2020-12-23 11:18] VITALS: BP 103/66; PULSE 90; RESP 18; TEMP 36.4; O2SAT 100
--- NOTE | 2020-12-23 11:51 | P.CNNE_ITS ---
History of Present Illness Data of Consult Service Date: 12/23/20 Primary Care Provider: Brandon Chowdary MD [facility] Reason for consult: Headache 25 years old woman being investigated for demyelinating disease and had a lumbar puncture done few days ago by Radiology. After that she was complaining of severe neck and head pain nausea and projectile vomiting. On questioning, she stated that she did have migraine-type of headaches in the past. There was no recent cold or flu-like illness or chills. Review of Systems Review of Systems: No recent cold or flu-like illness loss of bowel bladder control or trauma. [facility] Past Medical History Medical History Toxic shock syndrome Vaginal tumor Surgical History Surgical History (Updated 12/22/20 @ 12:48 by Louise Chang RN) History of appendectomy Social History Social History Household Members: Spouse Housing: House Do you presently have visiting nurse or other home services: No Alcohol intake: current Alcohol intake frequency: holidays/special occasions on ly Patient Tobacco Use Status: Never used Tobacco Use of substances other than those prescribed or required for medical reasons: No Currently Displaying Signs/Symptoms of Drug Intoxication Withdrawal: No Have you been hit, kicked, punched, or otherwise hurt by someone within the past year? If so, by whom?: No Do you feel safe in your current relationship?: Yes Is there a partner from a previous relationship who is making you feel unsafe now?: No Are you made to feel afraid or neglected: No Advance Directives: No Advance Directives Information Provided: No Do you have thoughts of harming others: None Do you have a plan to hurt others: No Plan Nutrition Risks: No Nutritional Risk Patient : No : No Poor oral hygiene: No service: No Current occupational status: employed Meds Allergies Allergy/AdvReac Type Severity Reaction Status Date / Time From Benadryl Allergy Unknown N/A Uncoded 01/08/20 17:58 Active Medications: Current Medications Generic Name Dose Route Start Last Admin Trade Name Freq PRN Reason Stop Dose Admin Acetaminophen 650 mg 12/22/20 22:58 Acetaminophen 325 Mg Tablet PO Q6H PRN Pain, Mild (Pain Scale 1-3) Clonazepam 0.25 - 0.5 mg 12/23/20 02:00 12/23/20 02:38 Clonazepam 0.5 Mg Tablet PO 0.25 mg BEDTIME INCOLE Administration Cyclobenzaprine HCl 10 mg 12/23/20 21:00 Cyclobenzaprine Hcl 10 Mg Tablet PO BEDTIME NICOLE Ethinyl Estradiol/Norgestimate 1 tab 12/23/20 21:00 Norgestimat/Eth Est 0.25/0.035 Tablet PO BEDTIME NICOLE Hydromorphone HCl 0.5 mg 12/22/20 22:58 12/23/20 11:27 Hydromorphone Hcl 0.5 Mg/0.5 Ml Syringe IVPUSH 0.5 mg Q4H PRN Administration Pain, Severe (Pain Scale 7-10) Protocol Sodium Chloride 1,000 mls @ 100 mls/hr 12/22/20 23:00 12/23/20 11:29 Ns IVCONT 100 mls/hr .Q10H NICOLE Administration Lamotrigine 150 mg 12/23/20 21:00 12/23/20 02:39 Lamotrigine 100 Mg Tablet PO 150 mg BEDTIME NICOLE Administration Magnesium Hydroxide 30 ml 12/22/20 22:58 Milk Of Magnesia 30 Ml Oral.Susp PO DAILY PRN Constipation Melatonin 6 mg 12/22/20 22:58 Melatonin 3 Mg Tablet PO BEDTIME PRN Insomnia Pharmacy Consult 1 each 12/22/20 21:55 Consult Rx Perform Med Rec MISCELLANE ONCE PRN Consult order Senna 17.2 mg 12/22/20 22:58 Sennosides 8.6 Mg Tablet PO BEDTIME PRN Constipation Sodium Chloride 3 ml 12/23/20 00:00 12/23/20 10:07 0.9 % Sodium Chloride Flush 3 Ml Syringe IVFLUSH Not Given QSHIFT NICOLE Tramadol HCl 50 mg 12/23/20 02:00 12/23/20 06:27 Tramadol Hcl 50 Mg Tablet PO 50 mg DAILY PRN Administration Pain (Scale Score 4-6) Trazodone HCl 100 mg 12/23/20 02:00 12/23/20 02:40 Trazodone Hcl 100 Mg Tablet PO 25 mg BEDTIME NICOLE Administration Home Medications Medication Instructions Recorded Confirmed Last Taken Type clonazepam 0.5 mg tablet 0.25 - 0.5 mg PO BEDTIME 12/22/20 12/22/20 12/21/20 History cyclobenzaprine 10 mg tablet 1 tab PO BEDTIME 12/22/20 12/22/20 12/21/20 History lamotrigine 150 mg tablet 1 tab PO BEDTIME 12/22/20 12/22/20 12/21/20 History melatonin 3 mg tablet 3 mg PO BEDTIME 12/22/20 12/22/20 12/21/20 History norgestimate 0.25 mg-ethinyl 1 tab PO BEDTIME 12/22/20 12/22/20 12/21/20 History estradiol 35 mcg tablet tramadol 50 mg tablet 1 tab PO DAILY PRN 12/22/20 12/22/20 Unknown History trazodone 100 mg tablet 1 tab PO BEDTIME 12/22/20 12/22/20 12/21/20 History Physical Exam Vital Signs: Vital Signs: Last Vital Signs Temp 97.5 F 12/23/20 11:18 Pulse 90 12/23/20 11:18 Resp 18 12/23/20 11:18 BP 103/66 12/23/20 11:18 Pulse Ox 100 12/23/20 11:18 Body Mass Index 21.7 Neuro: Other: She was alert and awake with normal spontaneity of speech fluency comprehension and affect. Face was symmetrical. Visual verdin are full. Extraocular muscles were intact. There was no focal weakness. Deep tendon reflexes are 2+ with flexor plantars. She was able to get up with help in the bed and after talking for few minutes fell on comfortable and put herself in supine position. Results Labs CBC & Chem 7: 12/23/20 06:11 12/23/20 06:11 Labs: Short CBC 12/22/20 12/23/20 Range/Units 13:28 06:11 WBC 10.1 4.5 L (4.8-10.8) X10*3/uL Hgb 12.8 12.1 (12.0-16.0) g/dl Hct 37.3 35.4 L (37-47) % Plt Count 248 276 (160-400) X10*3/uL BMP 12/22/20 12/23/20 13:28 06:11 Sodium 137 137 Potassium 3.8 4.3 Chloride 103 110 H Carbon Dioxide 26 21 L BUN 13 9 Creatinine 0.80 0.67 Calcium 10.0 8.5 D Assessment and Plan (1) Headache following lumbar puncture: Status: Acute 25 years old woman with somewhat complicated medical and psychological history with diagnosis of mood disorder and also being investigated for atypical neurological syndrome. Her cervical spine MRI apparently had not reveal any significant pathology. I could not find her brain scan. She had a lumbar puncture recently for investigation for demyelinating disease. Spinal fluid was bloody suggesting that they might be some difficulty in getting the sample. After that she complained of severe headache neck pain nausea and vomiting especially so when she was up and about. This was suggestive of low-pressure spinal headache. She was also young relatively thin woman, a body habitus that typically put patients at risk for this condition. For now my recommendation is to consider epidural blood patch as she has not fully responded to medical management. She probably would continue to have some element of neck pain and headaches as she was prone to have chronic neck pain and migraine. She should follow up with Dr. Arias for further investigation and follow-up of the testing she just went through. Procedures Date of Service Date of Service: 12/23/20
[2020-12-23] MEDS: diazePAM 2 MG TABLET PO (13:52)
[2020-12-23 16:00] VITALS: BP 118/77; PULSE 99; RESP 18; TEMP 37.1; O2SAT 100
[2020-12-23 19:13] VITALS: RESP 20
[2020-12-23] MEDS: HYDROmorphone HCl 0.5 MG/0.5 ML SYRINGE 1 MG IVPUSH (19:13)
[2020-12-23 19:40] VITALS: BP 121/79; PULSE 87; RESP 18; TEMP 36.8; O2SAT 100
[2020-12-23] MEDS: Cyclobenzaprine HCl 10 MG TABLET PO (20:31)
[2020-12-23] MEDS: diazePAM 2 MG TABLET 4 MG PO (20:32)
[2020-12-24] VITALS (11 sets, daily range): BP systolic 96–121; BP diastolic 60–80; PULSE 78–93; RESP 16–20; TEMP 36.2–36.9; O2SAT 96–100
[2020-12-24] MEDS: HYDROmorphone HCl 0.5 MG/0.5 ML SYRINGE 1 MG IVPUSH ×5 (00:26→20:10)
[2020-12-24] MEDS: 0.9 % Sodium Chloride 1,000 ML 100 ML IVCONT (05:28)
--- NOTE | 2020-12-24 08:43 | HO.PM.IMPN ---
Subjective Subjective Date of Service: 12/24/20 Interval History: Seen in f/u for headache, neck pain following LP..Pain is essentially unchanged with intermittent relief with Dilaudid and valium for anxiety Review of Systems no fever headach neck pain Physical Exam Vital Signs: Vital Signs: Last Vital Signs Temp 98.2 F 12/24/20 08:00 Pulse 82 12/24/20 08:00 Resp 18 12/24/20 08:00 BP 96/60 12/24/20 08:00 Pulse Ox 96 12/24/20 08:00 Body Mass Index 21.7 General: AO X 3, uncomfortable Resp: CTA bilateral CVS: S1,S2,RRR GI: +BS, NT, no distention Skin: No rash Neuro: motor grossly intact Psych: appropriate affect Objective Data Active Medications Acetaminophen (Acetaminophen 325 Mg Tablet) 650 mg PO Q6H PRN PRN Reason: Pain, Mild (Pain Scale 1-3) Cyclobenzaprine HCl (Cyclobenzaprine Hcl 10 Mg Tablet) 10 mg PO BEDTIME [facility] Last Admin: 12/23/20 20:31 Dose: 10 mg Documented by: LUCI Diazepam (Diazepam 2 Mg Tablet) 4 mg PO TID PRN PRN Reason: Anxiety Last Admin: 12/23/20 20:32 Dose: 4 mg Documented by: LUCI Hydromorphone HCl (Hydromorphone Hcl 0.5 Mg/0.5 Ml Syringe) 1 mg IVPUSH Q4H PRN; Protocol PRN Reason: Pain, Severe (Pain Scale 7-10) Last Admin: 12/24/20 05:27 Dose: 1 mg Documented by: CELIO Sodium Chloride (Ns) 1,000 mls @ 100 mls/hr IVCONT .Q10H NICOLE Last Admin: 12/24/20 05:28 Dose: 100 mls/hr Documented by: CELIO Lamotrigine (Lamotrigine 100 Mg Tablet) 150 mg PO BEDTIME [facility] Last Admin: 12/23/20 20:31 Dose: 150 mg Documented by: LUCI Magnesium Hydroxide (Milk Of Magnesia 30 Ml Oral.Susp) 30 ml PO DAILY PRN PRN Reason: Constipation Melatonin (Melatonin 3 Mg Tablet) 6 mg PO BEDTIME PRN PRN Reason: Insomnia Non-Formulary Medication ( Norgestimat/Eth Est 0.25/0.035 Tablet) 1 each PO BEDTIME [facility] Pharmacy Consult (Consult Rx Perform Med Rec) 1 each MISCELLANE ONCE PRN PRN Reason: Consult order Senna (Sennosides 8.6 Mg Tablet) 17.2 mg PO BEDTIME PRN PRN Reason: Constipation Sodium Chloride (0.9 % Sodium Chloride Flush 3 Ml Syringe) 3 ml IVFLUSH QSHIFT [facility] Last Admin: 12/24/20 01:14 Dose: Not Given Documented by: CELIO Non-Admin Reason: IV Running Tramadol HCl (Tramadol Hcl 50 Mg Tablet) 50 mg PO DAILY PRN PRN Reason: Pain (Scale Score 4-6) Last Admin: 12/23/20 06:27 Dose: 50 mg Documented by: VANI Trazodone HCl (Trazodone Hcl 100 Mg Tablet) 100 mg PO BEDTIME [facility] Last Admin: 12/23/20 20:31 Dose: 100 mg Documented by: LUCI Labs CBC & Chem 7: 12/23/20 06:11 12/23/20 06:11 Assessment and Plan (1) Headache following lumbar puncture: Status: Acute Assessment and Plan: ?25-year-old female with a past medical history of anxiety, mood disorder presented to the hospital with a chief complaint of headache/neck pain/back pain post lumbar puncture Headache/Neck pain following LP--Pain control with Dilaudid Anesthesia to Perform blood patch today Anxiety/mood disorder:? Continue home medications in additiona to Valium d/t excess anxiety in light of above Quality Stroke Does the patient have a stroke diagnosis?: No VTE Prior VTE?: No VTE Risk Level:: Medical - moderate - high VTE Device Contraindication: N/A - Device Ordered VTE Drug Contraindication: Treatment Not Indicated
--- NOTE | 2020-12-24 12:07 | MHC.CM.PN ---
Female 25 DX Headache s/p LP. Plan today is a Blood Patch performed by Anesthesia. Patient may discharge today after procedure. Family will transport. CM will follow.
--- NOTE | 2020-12-24 13:52 | MHC.SHP ---
Pre-Procedural Eval Section A Date of Service: 12/24/20 The patient is an INPATIENT: Yes Changes since office visit: Yes Patient answered all questions The History & Physical has been completed within 30 days and I have reviewed it.: No Section B Chief Complaint: Headache post LP Details of Present Illness: Post dural puncture headache Allergies: Allergies Allergy/AdvReac Type Severity Reaction Status Date / Time From Benadryl Allergy Unknown N/A Uncoded 01/08/20 17:58 Review of Systems Sugical H&P ROS: Negative: Constitution, Cardiovascular, Respiratory, Psychiatric, Hem-Onc, Allergic/Immunologic, Gastrointestinal, Genitourinary, Musculoskeletal, Integumentary, Endocrine and Eyes/Ears/Nose/Throat and Yes, Specify: Neurological (Demyelinating neurological disease) Exam Surgical H&P Exam: Normal: HEENT, Normal: Heart, Normal: Lungs, Normal: Extremities, Normal: Abdomen, Normal: Skin and Normal: Neurological Plan Diagnosis/Plan: Unchanged I have reviewed the history and physical and performed a pertinent physical examination on my patient. No changes have occurred unless specified.
[2020-12-24] MEDS: ondansetron HCL 4 MG/2 ML VIAL IVPUSH (14:35)
--- NOTE | 2020-12-24 15:00 | PC.NURSE ---
Patient arrived in preop in bed. During intake patient complaining of head/back/neck pain 01/30. This RN unable to administer floor medication orders. Patients floor nurse Octavia Vega contacted. Octavia able to bring down prescribed floor order of Dilaudid 1mg. During this time, patient began crying and feeling extremely nauseas. New order obtained from Dr. Gtz for Zofran IVP. See new orders. This medication administered. Shortly after Nurse Stonehand Gulshan arrived with IV pain medication. This medication administered by him. Patient currently resting and observed to be much more comfortable. Dr. Gtz and Anesthesia Dr. Mckeon at bedside. Patient sates medications have worked a bit . Lights shut off and cold pack given for comfort as well as reassurance to patient.
--- NOTE | 2020-12-24 15:42 | P.BOP_ITS ---
Brief Operative Note Date of Service: 12/24/20 Pre-op diagnosis: Post dural puncture headache Post-op diagnosis: same Procedure: Epidural blood patch Implants: None Surgeon: Kumar Gtz MD Anesthesia: none Was an Systems Tester used for this Procedure?: No Estimated blood loss (mL): 0 Disposition: PACU
--- NOTE | 2020-12-24 15:43 | P.OP_ITS ---
Operative Note Operative Note Date of Service: 12/24/20 Narrative: Miss Viveros is very pleasant 25 years old female who are came to the operating room for performance of epidural blood patch because she developed post dural puncture headache after the lumbar puncture performed to diagnose neurological condition. Patient came to the operating room and she was positioned prone on the operating table with 2 pillows under the abdomen. [place] [employer] monitors were not applied. Patient was not sedated. Time-out was performed. Patient participated in her on time-out. After that the lower back was prepped with ChloraPrep and draped with utility towels. Previous site of the puncture was noted to the left side of the spinous process of the L3 vertebra. The right side and laminae of L3 vertebra on the right side was chosen as the target of the injection. 20 gauge 10 cm Touhy needle was inserted through the skin after skin was anesthetized with small amount of lidocaine. The needle advanced to were the L2-L3 epidural space on anterior posterior and lateral views. Loss of resistance to air technique was used to locate the epidural space. When loss of resistance felt small amount of the contrast was injected into the epidural space demonstrating anterior and the posterior spread of the epidural contrast. After that anesthesiologist Dr. Grace Mckeon sterilely obtain 17 cc of autologous blood. I injected this 17 cc into the epidural space. Upon completion of the injection needle was removed sterile dressing was applied. Patient tolerated procedure well she reported immediate the reduction of the level of the headache. She was transferred safely to the floor.
[2020-12-24] MEDS: diazePAM 2 MG TABLET 4 MG PO ×2 (19:20→23:32)
[2020-12-24] MEDS: traZODone HCL 100 MG TABLET PO (21:33)
[2020-12-24] MEDS: Cyclobenzaprine HCl 10 MG TABLET PO (21:33)
[2020-12-24] MEDS: lamoTRIgine 100 MG TABLET 150 MG PO (21:33)
[2020-12-24] MEDS: 0.9 % Sodium Chloride 1,000 ML 50 ML IVCONT (21:34)
--- NOTE | 2020-12-24 23:48 | PC.NURSE ---
pt requesting home dose of Klonopin 0.5mg PO on med rec. made aware. states no to klonopin, give prn valium. Pt made aware upset, stating having anxiety and needing klonopin but agreeable to try valium at this time. valium given early.
[2020-12-25] MEDS: HYDROmorphone HCl 0.5 MG/0.5 ML SYRINGE 1 MG IVPUSH ×2 (00:18→04:24)
[2020-12-25] MEDS: Metoclopramide HCl 10 MG/2 ML VIAL 5 MG IVPUSH ×2 (00:30→08:03)
[2020-12-25 04:00] VITALS: BP 96/52; PULSE 84; RESP 18; TEMP 37; O2SAT 97
[2020-12-25 07:24] VITALS: BP 94/61; PULSE 88; RESP 16; TEMP 36.4; O2SAT 97
[2020-12-25] MEDS: diazePAM 2 MG TABLET 4 MG PO ×2 (08:01→15:20)
[2020-12-25] MEDS: ondansetron HCL 4 MG/2 ML VIAL IVPUSH ×2 (10:08→17:40)
[2020-12-25 11:14] VITALS: BP 98/60; PULSE 93; RESP 18; TEMP 37.1; O2SAT 97
[2020-12-25] MEDS: oxyCODONE HCl Immed Release 5 MG TABLET PO ×3 (12:00→21:22)
[2020-12-25 14:52] VITALS: BP 109/70; PULSE 90; RESP 20; TEMP 36.4; O2SAT 99
--- NOTE | 2020-12-25 16:16 | P.PNIM_ITS ---
Subjective Subjective Date of Service: 12/25/20 Interval History: f/u on headache and neck pain post LP, blood patch done yesterday and felt better then this morning started having nausea and vomitting and then return of headache, vitals stable. Review of Systems headache, no fever, no photophobia nausea and vomitting Physical Exam Vital Signs: Vital Signs: Last Vital Signs Temp 97.5 F 12/25/20 14:52 Pulse 90 12/25/20 14:52 Resp 20 12/25/20 14:52 BP 109/70 12/25/20 14:52 Pulse Ox 99 12/25/20 14:52 Body Mass Index 21.7 General: AO X 3, no acute distress Resp: CTA bilateral CVS: S1,S2,RRR GI: +BS, NT, no distention Skin: No rash Neuro: motor grossly intact Psych: appropriate affect Objective Data Active Medications Acetaminophen (Acetaminophen 325 Mg Tablet) 650 mg PO Q6H PRN PRN Reason: Pain, Mild (Pain Scale 1-3) Cyclobenzaprine HCl (Cyclobenzaprine Hcl 10 Mg Tablet) 10 mg PO BEDTIME [facility] Last Admin: 12/24/20 21:33 Dose: 10 mg Documented by: LUPILLO Diazepam (Diazepam 2 Mg Tablet) 4 mg PO TID PRN PRN Reason: Anxiety Last Admin: 12/25/20 15:20 Dose: 4 mg Documented by: CHRISTIANO Comments: head ct anxiety Hydromorphone HCl (Hydromorphone Hcl 0.5 Mg/0.5 Ml Syringe) 0.5 mg IVPUSH Q4H PRN; Protocol PRN Reason: Pain, Severe (Pain Scale 7-10) Sodium Chloride (Ns) 1,000 mls @ 50 mls/hr IVCONT .Q20H [facility] Last Admin: 12/24/20 21:34 Dose: 50 mls/hr Documented by: LUPILLO Lamotrigine (Lamotrigine 100 Mg Tablet) 150 mg PO BEDTIME [facility] Last Admin: 12/24/20 21:33 Dose: 150 mg Documented by: LUPILLO Magnesium Hydroxide (Milk Of Magnesia 30 Ml Oral.Susp) 30 ml PO DAILY PRN PRN Reason: Constipation Melatonin (Melatonin 3 Mg Tablet) 6 mg PO BEDTIME PRN PRN Reason: Insomnia Metoclopramide HCl (Metoclopramide Hcl 10 Mg/2 Ml Vial) 5 mg IVPUSH Q8H PRN PRN Reason: Nausea and Vomiting Last Admin: 12/25/20 08:03 Dose: 5 mg Documented by: CHRISTIANO Non-Formulary Medication ( Norgestimat/Eth Est 0.25/0.035 Tablet) 1 each PO BEDTIME [facility] Ondansetron HCl (Ondansetron Hcl 4 Mg/2 Ml Vial) 4 mg IVPUSH Q8H PRN PRN Reason: Nausea and Vomiting Last Admin: 12/25/20 10:08 Dose: 4 mg Documented by: CHRISTIANO Oxycodone HCl (Oxycodone Hcl Immed Release 5 Mg Tablet) 5 mg PO Q6H PRN PRN Reason: Pain, Severe (Pain Scale 7-10) Last Admin: 12/25/20 14:43 Dose: 5 mg Documented by: CHRISTIANO Pharmacy Consult (Consult Rx Perform Med Rec) 1 each MISCELLANE ONCE PRN PRN Reason: Consult order Senna (Sennosides 8.6 Mg Tablet) 17.2 mg PO BEDTIME PRN PRN Reason: Constipation Sodium Chloride (0.9 % Sodium Chloride Flush 3 Ml Syringe) 3 ml IVFLUSH QSHIFT [facility] Last Admin: 12/25/20 07:27 Dose: Not Given Documented by: CHRISTIANO Non-Admin Reason: IV Running Tramadol HCl (Tramadol Hcl 50 Mg Tablet) 50 mg PO DAILY PRN PRN Reason: Pain (Scale Score 4-6) Last Admin: 12/23/20 06:27 Dose: 50 mg Documented by: VANI Trazodone HCl (Trazodone Hcl 100 Mg Tablet) 100 mg PO BEDTIME [facility] Last Admin: 12/24/20 21:33 Dose: 100 mg Documented by: LUPILLO Labs CBC & Chem 7: 12/23/20 06:11 12/23/20 06:11 Assessment and Plan (1) Headache following lumbar puncture: Status: Acute Assessment and Plan: ?25-year-old female with a past medical history of anxiety, mood disorder presented to the hospital with a chief complaint of headache/neck pain/back pain post lumbar puncture Headache/Neck pain following LP--had blood patch with relief and now having headache again, pain control with oxycodone and dilaudid, repeat head CT, reconsult neurology Anxiety/mood disorder:? Continue home medications in additiona to Valium d/t excess anxiety in light of above Nausea, vomitting, possibly related to headache or pain, reglan, Zofran and hydration . Quality Stroke Does the patient have a stroke diagnosis?: No VTE Prior VTE?: No VTE Risk Level:: Medical - moderate - high VTE Device Contraindication: N/A - Device Ordered VTE Drug Contraindication: Treatment Not Indicated
[2020-12-25] MEDS: 0.9 % Sodium Chloride 1,000 ML 50 ML IVCONT (16:25)
[2020-12-25] MEDS: 0.9 % Sodium Chloride Flush 3 ML SYRINGE IVFLUSH (16:25)
[2020-12-25] MEDS: HYDROmorphone HCl 0.5 MG/0.5 ML SYRINGE IVPUSH (17:40)
[2020-12-25 19:15] VITALS: BP 102/65; PULSE 89; RESP 18; TEMP 36.7; O2SAT 99
[2020-12-25] MEDS: Cyclobenzaprine HCl 10 MG TABLET PO (21:22)
[2020-12-25] MEDS: clonazePAM 0.5 MG TABLET PO (21:22)
[2020-12-25] MEDS: traZODone HCL 100 MG TABLET PO (21:22)
[2020-12-25] MEDS: lamoTRIgine 100 MG TABLET 150 MG PO (21:22)
[2020-12-25 23:25] VITALS: BP 100/58; PULSE 109; RESP 18; TEMP 36.9; O2SAT 98
[2020-12-26 04:00] VITALS: BP 90/53; PULSE 94; RESP 18; TEMP 36.8; O2SAT 97
[2020-12-26 07:34] VITALS: BP 98/56; PULSE 99; RESP 20; TEMP 36.9; O2SAT 97
[2020-12-26 08:44] LABS: Hematocrit 34.1 % (37-47); Hemoglobin 11.8 g/dl (12.0-16.0); Mean Corpuscular HGB Conc 34.6 g/dl (31.0-35.0); Mean Corpuscular Volume 92.4 fL (80-98); Mean Platelet Volume 10.1 fL (9.4-12.3); Platelet Count 258 X10*3/uL (160-400); Red Blood Count 3.69 X10*6/uL (4.20-5.50); Red Cell Distribution Width 11.3 % (11.0-16.0); White Blood Count 6.4 X10*3/uL (4.8-10.8)
[2020-12-26] MEDS: 0.9 % Sodium Chloride Flush 3 ML SYRINGE IVFLUSH (08:49)
[2020-12-26] MEDS: oxyCODONE HCl Immed Release 5 MG TABLET PO (08:56)
[2020-12-26 09:01] LABS: Anion Gap 10 (12-20); Blood Urea Nitrogen 10 mg/dL (9-16); Calcium 8.7 mg/dL (8.4-10.2); Carbon Dioxide 26 mmol/L (22-29); Chloride 108 mmol/L (96-108); Creatinine Clr Calc Pharmacy 98.9; Estimated Glomerular Filt Rate > 60; Glucose Random 91 mg/dL (60-115); Sodium 140 mmol/L (135-145)
--- NOTE | 2020-12-26 10:19 | P.CNNE_ITS ---
History of Present Illness Data of Consult Service Date: 12/26/20 Primary Care Provider: Brandon Chowdary MD HPI Reason for consult: Headache 25 years old woman who recently suffered from post lumbar puncture spinal head ache. She had a blood patch done couple of days ago and now she was feeling much more comfortable and this morning was able to sit without distress. There was no new symptom. [facility] Past Medical History Medical History Toxic shock syndrome Vaginal tumor Surgical History Surgical History (Updated 12/22/20 @ 12:48 by Louise Chang RN) History of appendectomy Social History Social History Household Members: Spouse Housing: House Do you presently have visiting nurse or other home services: No Alcohol intake: current Alcohol intake frequency: a few times a month Patient Tobacco Use Status: Never used Tobacco Use of substances other than those prescribed or required for medical reasons: No Currently Displaying Signs/Symptoms of Drug Intoxication Withdrawal: No Have you been hit, kicked, punched, or otherwise hurt by someone within the past year? If so, by whom?: No Do you feel safe in your current relationship?: Yes Is there a partner from a previous relationship who is making you feel unsafe now?: No Are you made to feel afraid or neglected: No Are you DNR?: No Advance Directives: No Advance Directives Information Provided: No Do you have thoughts of harming others: None Do you have a plan to hurt others: No Plan Nutrition Risks: No Nutritional Risk Patient : No : No Poor oral hygiene: No service: No Current occupational status: employed Meds Allergies Allergy/AdvReac Type Severity Reaction Status Date / Time From Benadryl Allergy Unknown N/A Uncoded 01/08/20 17:58 Active Medications: Current Medications Generic Name Dose Route Start Last Admin Trade Name Freq PRN Reason Stop Dose Admin Acetaminophen 650 mg 12/22/20 22:58 Acetaminophen 325 Mg Tablet PO Q6H PRN Pain, Mild (Pain Scale 1-3) Clonazepam 0.5 mg 12/25/20 18:33 12/25/20 21:22 Clonazepam 0.5 Mg Tablet PO 0.5 mg TID PRN Administration Anxiety Cyclobenzaprine HCl 10 mg 12/23/20 21:00 12/25/20 21:22 Cyclobenzaprine Hcl 10 Mg Tablet PO 10 mg BEDTIME NICOLE Administration Hydromorphone HCl 0.5 mg 12/25/20 15:11 12/25/20 17:40 Hydromorphone Hcl 0.5 Mg/0.5 Ml Syringe IVPUSH 0.5 mg Q4H PRN Administration Pain, Severe (Pain Scale 7-10) Protocol Sodium Chloride 1,000 mls @ 50 mls/hr 12/24/20 20:45 12/25/20 16:25 Ns IVCONT 50 mls/hr .Q20H NICOLE Administration Lamotrigine 150 mg 12/23/20 21:00 12/25/20 21:22 Lamotrigine 100 Mg Tablet PO 150 mg BEDTIME NICOLE Administration Magnesium Hydroxide 30 ml 12/22/20 22:58 Milk Of Magnesia 30 Ml Oral.Susp PO DAILY PRN Constipation Melatonin 6 mg 12/22/20 22:58 Melatonin 3 Mg Tablet PO BEDTIME PRN Insomnia Metoclopramide HCl 5 mg 12/25/20 00:24 12/25/20 08:03 Metoclopramide Hcl 10 Mg/2 Ml Vial IVPUSH 5 mg Q8H PRN Administration Nausea and Vomiting Non-Formulary 1 each 12/23/20 21:00 Medication ( PO Norgestimat/Eth Est BEDTIME NICOLE 0.25/0.035 Tablet) Ondansetron HCl 4 mg 12/25/20 09:58 12/25/20 17:40 Ondansetron Hcl 4 Mg/2 Ml Vial IVPUSH 4 mg Q8H PRN Administration Nausea and Vomiting Oxycodone HCl 5 mg 12/25/20 11:39 12/26/20 08:56 Oxycodone Hcl Immed Release 5 Mg Tablet PO 5 mg Q6H PRN Administration Pain, Severe (Pain Scale 7-10) Pharmacy Consult 1 each 12/22/20 21:55 Consult Rx Perform Med Rec MISCELLANE ONCE PRN Consult order Senna 17.2 mg 12/22/20 22:58 Sennosides 8.6 Mg Tablet PO BEDTIME PRN Constipation Sodium Chloride 3 ml 12/23/20 00:00 12/26/20 08:49 0.9 % Sodium Chloride Flush 3 Ml Syringe IVFLUSH 3 ml QSHIFT NICOLE Administration Tramadol HCl 50 mg 12/23/20 02:00 12/23/20 06:27 Tramadol Hcl 50 Mg Tablet PO 50 mg DAILY PRN Administration Pain (Scale Score 4-6) Trazodone HCl 100 mg 12/23/20 02:00 12/25/20 21:22 Trazodone Hcl 100 Mg Tablet PO 100 mg BEDTIME NICOLE Administration Home Medications Medication Instructions Recorded Confirmed Last Taken Type clonazepam 0.5 mg tablet 0.25 - 0.5 mg PO BEDTIME 12/22/20 12/22/20 12/21/20 History cyclobenzaprine 10 mg tablet 1 tab PO BEDTIME 12/22/20 12/22/20 12/21/20 History lamotrigine 150 mg tablet 1 tab PO BEDTIME 12/22/20 12/22/20 12/21/20 History melatonin 3 mg tablet 3 mg PO BEDTIME 12/22/20 12/22/20 12/21/20 History norgestimate 0.25 mg-ethinyl 1 tab PO BEDTIME 12/22/20 12/22/20 12/21/20 History estradiol 35 mcg tablet tramadol 50 mg tablet 1 tab PO DAILY PRN 12/22/20 12/22/20 Unknown History trazodone 100 mg tablet 1 tab PO BEDTIME 12/22/20 12/22/20 12/21/20 History Physical Exam Vital Signs: Vital Signs: Last Vital Signs Temp 98.5 F 12/26/20 07:34 Pulse 99 12/26/20 07:34 Resp 20 12/26/20 07:34 BP 98/56 L 12/26/20 07:34 Pulse Ox 97 12/26/20 07:34 Body Mass Index 21.7 Neuro: Other: She was alert and awake with normal spontaneity of speech fluency comprehension and affect. Balance gait and coordination were normal. Affect was normal. There was no abnormality on her back other than signs of previous lumbar puncture. Results Labs CBC & Chem 7: 12/26/20 08:36 12/26/20 08:36 Labs: Short CBC 12/26/20 Range/Units 08:36 WBC 6.4 (4.8-10.8) X10*3/uL Hgb 11.8 L (12.0-16.0) g/dl Hct 34.1 L (37-47) % Plt Count 258 (160-400) X10*3/uL BMP 12/26/20 08:36 Sodium 140 Potassium 4.0 Chloride 108 Carbon Dioxide 26 BUN 10 Creatinine 0.80 Calcium 8.7 Assessment and Plan (1) Headache following lumbar puncture: Status: Acute Post lumbar puncture spinal headache now much better with blood patch. She was reassured and educated and was advised to avoid hectic activity for few days. Otherwise she could be discharged with follow-up with Dr. Arias. Procedures Date of Service Date of Service: 12/26/20
--- NOTE | 2020-12-26 11:51 | P.PNIM_ITS ---
Subjective Subjective Date of Service: 12/26/20 Interval History: Seen in f/u neck pain, headache. Persistent pain, no photophobia Review of Systems headache, neck pain, no n/v, no photophobia Physical Exam Vital Signs: Vital Signs: Last Vital Signs Temp 98.5 F 12/26/20 07:34 Pulse 99 12/26/20 07:34 Resp 20 12/26/20 07:34 BP 98/56 L 12/26/20 07:34 Pulse Ox 97 12/26/20 07:34 Body Mass Index 21.7 General: AO X 3, no acute distress Resp: CTA bilateral CVS: S1,S2,RRR GI: +BS, NT, no distention Skin: No rash Neuro: motor grossly intact, no focal deficit Psych: appropriate affect Objective Data Active Medications Acetaminophen (Acetaminophen 325 Mg Tablet) 650 mg PO Q6H PRN PRN Reason: Pain, Mild (Pain Scale 1-3) Clonazepam (Clonazepam 0.5 Mg Tablet) 0.5 mg PO TID PRN PRN Reason: Anxiety Last Admin: 12/25/20 21:22 Dose: 0.5 mg Documented by: LUPILLO Cyclobenzaprine HCl (Cyclobenzaprine Hcl 10 Mg Tablet) 10 mg PO BEDTIME NICOLE Last Admin: 12/25/20 21:22 Dose: 10 mg Documented by: LUPILLO Hydromorphone HCl (Hydromorphone Hcl 0.5 Mg/0.5 Ml Syringe) 0.5 mg IVPUSH Q4H PRN; Protocol PRN Reason: Pain, Severe (Pain Scale 7-10) Last Admin: 12/25/20 17:40 Dose: 0.5 mg Documented by: CHRISTIANO Sodium Chloride (Ns) 1,000 mls @ 50 mls/hr IVCONT .Q20H [facility]ICO[facility] Last Admin: 12/25/20 16:25 Dose: 50 mls/hr Documented by: CHRISTIANO Lamotrigine (Lamotrigine 100 Mg Tablet) 150 mg PO BEDTIME [facility] Last Admin: 12/25/20 21:22 Dose: 150 mg Documented by: LUPILLO Magnesium Hydroxide (Milk Of Magnesia 30 Ml Oral.Susp) 30 ml PO DAILY PRN PRN Reason: Constipation Magnesium Hydroxide (Milk Of Magnesia 30 Ml Oral.Susp) 30 ml PO DAILY PRN PRN Reason: Constipation Melatonin (Melatonin 3 Mg Tablet) 6 mg PO BEDTIME PRN PRN Reason: Insomnia Metoclopramide HCl (Metoclopramide Hcl 10 Mg/2 Ml Vial) 5 mg IVPUSH Q8H PRN PRN Reason: Nausea and Vomiting Last Admin: 12/25/20 08:03 Dose: 5 mg Documented by: CHRISTIANO Non-Formulary Medication ( Norgestimat/Eth Est 0.25/0.035 Tablet) 1 each PO BEDTIME [facility] Ondansetron HCl (Ondansetron Hcl 4 Mg/2 Ml Vial) 4 mg IVPUSH Q8H PRN PRN Reason: Nausea and Vomiting Last Admin: 12/25/20 17:40 Dose: 4 mg Documented by: CHRISTIANO Oxycodone HCl (Oxycodone Hcl Immed Release 5 Mg Tablet) 5 mg PO Q6H PRN PRN Reason: Pain, Severe (Pain Scale 7-10) Last Admin: 12/26/20 08:56 Dose: 5 mg Documented by: THADDEUS Pharmacy Consult (Consult Rx Perform Med Rec) 1 each MISCELLANE ONCE PRN PRN Reason: Consult order Senna (Sennosides 8.6 Mg Tablet) 17.2 mg PO BEDTIME PRN PRN Reason: Constipation Sodium Chloride (0.9 % Sodium Chloride Flush 3 Ml Syringe) 3 ml IVFLUSH [facility] Last Admin: 12/26/20 08:49 Dose: 3 ml Documented by: THADDEUS Tramadol HCl (Tramadol Hcl 50 Mg Tablet) 50 mg PO DAILY PRN PRN Reason: Pain (Scale Score 4-6) Last Admin: 12/23/20 06:27 Dose: 50 mg Documented by: VANI Trazodone HCl (Trazodone Hcl 100 Mg Tablet) 100 mg PO BEDTIME [facility] Last Admin: 12/25/20 21:22 Dose: 100 mg Documented by: LUPILLO Labs CBC & Chem 7: 12/26/20 08:36 12/26/20 08:36 Labs: Laboratory Results - last 24 hr 12/26/20 12/26/20 08:36 08:36 MCV 92.4 MCH 32.0 MCHC 34.6 RDW 11.3 Plt Count 258 MPV 10.1 Absolute Nucleated RBC 0.000 Nucleated RBC % (auto) 0.0 Anion Gap 10 L Estim Creat Clear Calc 98.9 Estimated GFR > 60 Random Glucose 91 D Calcium 8.7 Assessment and Plan (1) Headache following lumbar puncture: Status: Acute Assessment and Plan: ?25-year-old female with a past medical history of anxiety, mood disorder presented to the hospital with a chief complaint of headache/neck pain/back pain post lumbar puncture Headache/Neck pain following LP--had blood patch with relief and now having h eadache again, pain control with dilaudid, oxycodone, head CT yesterday negative. Reconsult neurology for further direction, Anxiety/mood disorder:? Continue klonopin Nausea, vomitting, possibly related to headache or pain, reglan, Zofran and hydration . Quality Stroke Does the patient have a stroke diagnosis?: No VTE Prior VTE?: No VTE Risk Level:: Medical - moderate - high VTE Device Contraindication: N/A - Device Ordered VTE Drug Contraindication: Treatment Not Indicated
[2020-12-26 12:00] VITALS: BP 111/65; PULSE 110; RESP 18; TEMP 36.9; O2SAT 97
[2020-12-26] MEDS: Milk of Magnesia 30 ML ORAL.SUSP PO (12:15)
[2020-12-26] MEDS: 0.9 % Sodium Chloride 1,000 ML 50 ML IVCONT (12:15)
--- NOTE | 2020-12-26 13:51 | PC.NURSE ---
0850 - This RN at patients bedside for AM assessment. Patient A&O x3, feeling groggy from just waking up . Patient reports head and neck pain improving but worsening lower back pain /. Patient's mother at bedside and reports she [the patient] has not gotten out of bedside since last Sunday and I have been putting her on the bedpan myself . Medicated with PRN oxycodone at 0856 - patient refusing Dilaudid. Re-assessed pain at 1037 and patient reports pain down to 7/10 since oxycodone administration. Patient also reports last BM was last Sunday. Dr Laurent notified via tiger text of pain and last BM - Milk of Mag ordered and administered at 1215 - effectiveness pending. Patient ambulated to bathroom with supervised assistance from staff and reports no complaints w/ ambulation. 1345 - This RN at bedside - Patient laying in bed asleep with lights off and ice pack applied to face - mother reports her headache was coming back . Dr Laurent notified - plan to discharge today per MD. Will continue to monitor.
--- NOTE | 2020-12-26 14:44 | MHC.CM.PN ---
PT CLEARED TO DC HOME TODAY. PT EXPRESSED CONCERN THAT HER INSURANCE COMPANY REQUIRES AUTH FOR NARCOTIC MEDICATIONS. CM CALLED [facility], HER LISTED PREFERRED PHARMACY, AND CONFIRMED IF INSURANCE COMPANY REFUSES TO FILL WITHOUT PA, PT CAN PAY OUT OF POCKET FOR MEDS. PT AND S/O EXPRESS NO CONCERN REGARDING ABILITY TO PAY FOR MEDS. PT WILL DC HOME TODAY WITH NO SERVICES. S/O PRESENT TO TRANSPORT
--- NOTE | 2020-12-26 14:47 | P.DS_ITS ---
DS: Providers Provider Date of Service: 12/26/20 Date of admission: 12/25/20 18:30 Primary care physician: Brandon Chowdary MD Consults: 12/22/20 22:58 Consult to Neurology Routine Consulting Provider: [facility] Reason for consultation: post LP headache,neck pain,back pain 12/24/20 08:35 Consult to Pain Management Routine Consulting Provider: Kumar Gtz Reason for consultation: Post LP headache, Need blood patch 12/25/20 15:09 Consult to Neurology Routine Consulting Provider: [facility] Reason for consultation: Peristent headache post LP DS: Diagnosis Discharge Diagnosis (1) Headache following lumbar puncture: Status: Resolved DS: Summary Hospital Course Hospital Course: Chief Complaint: Headaches 25-year-old female with a past medical history of anxiety, mood disorder; reason complains of left lower extremity paresthesias-being worked up for demyelinating disorder by Dr. Charles- neurology as outpatient; has had CT and MRI as outpatient; had LP done on 12/21/2020 under fluoroscopy; post LP she started to develop headache, neck pain, back pain; limiting her ambulation; presented back to the ER for further evaluation. Patient denies any chest pain palpitations lightheadedness or dizziness.? Denies any numbness tingling except for right lower extremity paresthesias. Reports that she is not able to get up because of the headache and neck pain and does not feel comfortable walking. Denies any fever chills cough.? Denies any GI or symptoms. Review of all other systems is negative except mentioned above ER course: Per ER team new patient had continued to have headache neck pain and back pain even after multiple doses of IV pain medications; discussed with Anesthesia who has seen the patient and evaluated the patient after discussion blood patch was deferred.? Anesthesia spoke to the Neurology who recommended admission to the hospital for pain control and to be re-evaluated in the morning for blood patch consideration. Hospital course: Patient was admitted primarly for pain control. She was treated with IV dilaudid and was subsequently seen by Dr. Britt Neurology and recommended blood patch which was done by Anestesia and following this had some relief but continues to have some level of pain. Had a repeat CT of the had which shows no acute finding. She has been reevaluated by Neurology and reassured and to avoid strenous, or hectic activities and to follow up with Dr. Hayes next week, will provide some oxycodone for pain control over the next few days. Time Spent with Patient Time attestation: Total time spent providing and/or coordinating discharge services: Discharge coordination time: Greater than 30 minutes Quality: Stroke Does the patient have a stroke diagnosis?: No Physical Exam Vital Signs: Vital Signs: Last Vital Signs Temp 98.5 F 12/26/20 12:00 Pulse 110 H 12/26/20 12:00 Resp 18 12/26/20 12:00 BP 111/65 12/26/20 12:00 Pulse Ox 97 12/26/20 12:00 Body Mass Index 21.7 DS: Data Data Completed and Pending Labs on day of discharge: Laboratory Results - last 24 hr 12/26/20 12/26/20 08:36 08:36 WBC 6.4 RBC 3.69 L Hgb 11.8 L Hct 34.1 L MCV 92.4 MCH 32.0 MCHC 34.6 RDW 11.3 Plt Count 258 MPV 10.1 Absolute Nucleated RBC 0.000 Nucleated RBC % (auto) 0.0 Sodium 140 Potassium 4.0 Chloride 108 Carbon Dioxide 26 Anion Gap 10 L BUN 10 Creatinine 0.80 Estim Creat Clear Calc 98.9 Estimated GFR > 60 Random Glucose 91 D Calcium 8.7 Discharge Plan Discharge Anticipated Discharge Date/Time: 12/26/20 14:36 Patient Disposition: Home, Self-Care Discharge Diagnosis: Headache Referrals: Brandon Chowdary MD [Primary Care Provider] - 1 Week Discharge Medications: New oxycodone 5 mg tablet 5 mg PO Q6H PRN (Reason: pain (scale score 7-10)) Qty: 12 RF: 0 ondansetron 4 mg tablet,disintegrating 4 mg PO Q8H PRN (Reason: nausea and vomiting) 4 Days Qty: 15 RF: 0 Continued cyclobenzaprine 10 mg tablet 1 tab PO BEDTIME RF: 0 lamotrigine 150 mg tablet 1 tab PO BEDTIME RF: 0 norgestimate-ethinyl estradiol 0.25-35 mg-mcg tablet 1 tab PO BEDTIME RF: 0 clonazepam 0.5 mg tablet 0.25 - 0.5 mg PO BEDTIME RF: 0 melatonin 3 mg Tablet 3 mg PO BEDTIME RF: 0 tramadol 50 mg tablet 1 tab PO DAILY PRN (Reason: Pain (Scale Score 4-6)) RF: 0 trazodone 100 mg tablet 1 tab PO BEDTIME RF: 0 Discharge Orders: Discharge Order (Routine); Ordered 12/26/20 Ordered By: Kishore Laurent Diet: advance to usual diet Activity on Discharge: As tolerated Stand Alone Forms: Patient Portal Discharge page Care Plan Goals: Resolution of headaches Health Concerns: Headache after lumbar punture Plan of Treatment: Take oxycodone as needd for headache, zofran for nausea of vomitting, to take it easy, avoid hectic activites and follow up with Dr. Hayes next week Assessment: As above Discharge Date/Time: 12/26/20 16:18
[2020-12-26 15:21] VITALS: BP 111/72; PULSE 94; RESP 18; TEMP 37.1; O2SAT 100
== END 2020-12-26 16:18 | disposition home or self-care (01) | DRG 103 ==
LOC: HO.ED 22:25 → HO.EDOVER 23:08 → HO.IMC 12-23 00:12
PROVIDERS: Anesthesiology; Nurse Practitioner Family; Admitting Provider Hospitalist; Emergency Provider Emergency Medicine; PCP Internal Medicine; Visit Provider Internal Medicine
PROC: 3E0R3GC Introduction of Other Therapeutic Substance into Spinal Canal, Percutaneous Approach (ICD-10-PCS; CPT 62273; principal; 2020-12-24 13:40)
DX: G97.1 Other reaction to spinal and lumbar puncture (principal); F41.9 Anxiety disorder, unspecified; F39 Unspecified mood [affective] disorder; R51.0 Headache with orthostatic component, not elsewhere classified; Z20.822 Contact with and (suspected) exposure to COVID-19; Z79.891 Long term (current) use of opiate analgesic; Z79.899 Other long term (current) drug therapy
CPT/HCPCS: 36415; 70450; 80048; 85025; 85027; 87635; 99218; 99285; J1100; J1170; J1885; J2405; J2765; Q9967